=== PATIENT | male | born 2000 | race Two or more races ===

== ENCOUNTER 2024-12-19 10:55 | Emergency (ER) | payer SELFPAY | END 2024-12-19 13:07 | disposition home or self-care (01) | LOC: MW.ED 10:55 | DX: S62.336A Displaced fracture of neck of fifth metacarpal bone, right hand, initial encounter for closed fracture (principal); Z75.8 Other problems related to medical facilities and other health care; Z79.899 Other long term (current) drug therapy; W00.0XXA Fall on same level due to ice and snow, initial encounter; Y93.89 Activity, other specified | CPT/HCPCS: 29125; 73030-26-RT; 73030-RT; 73080-26-RT; 73080-RT; 73110-26-RT; 73110-RT; 73130-26-RT; 73130-RT; 99283-25 ==